=== PATIENT | female | born 1955 | race Caucasian/White ===

== ENCOUNTER → 2016-06-14 | Outpatient (CLI) | payer OTHER ==
[~2016-06-14] MED LIST: NKHM; NORCO 325 MG-51 TAB PO; PERCOCET 325 MG1 TA7 PO; PRILOSEC20 MG PO
== END | disposition home or self-care (01) ==
LOC: ORTHO 02:02
DX: M17.11 Unilateral primary osteoarthritis, right knee (principal)

== ENCOUNTER → 2016-07-13 | Outpatient (CLI) | payer BC | END | disposition home or self-care (01) | LOC: MRI 07:42 | DX: S83.231D Complex tear of medial meniscus, current injury, right knee, subsequent encounter (principal); X58.XXXD Exposure to other specified factors, subsequent encounter ==

== ENCOUNTER → 2016-08-17 | Outpatient (CLI) | payer OTHER ==
[2016-08-17 09:26] LABS: BASO % 0.9 % (0.0-1.0); EOS # 0.1 10*3/uL (0.0-0.4); EOS % 1.9 % (1.0-4.0); HEMATOCRIT 43.5 % (37.0-47.0); HEMOGLOBIN 14.6 g/dl (12.0-16.0); LYMPH # 1.3 10*3/uL (1.3-4.4); LYMPH % 29.4 % (27.0-41.0); MEAN CELL VOLUME 86.1 fl (81.0-99.0); MEAN CORPUSCULAR HGB 28.9 pg (27.0-31.0); MEAN CORPUSCULAR HGB CONC 33.6 g/dl (33.0-37.0); MEAN PLATELET VOLUME 10.3 fl (9.6-12.3); MONO # 0.3 10*3/uL (0.1-1.0); MONO % 6.3 % (3.0-9.0); NEUT # 2.6 10*3/uL (2.3-7.9); NEUT % 61.3 % (47.0-73.0); PLATELET COUNT AUTOMATED 251 10*3/uL (130-400); RED BLOOD COUNT 5.05 10*6/uL (4.10-5.10); RED CELL DISTRI WIDTH 12.4 % (0-14.5); WHITE BLOOD COUNT 4.3 10*3/uL (4.8-10.8)
[2016-08-17 09:28] LABS: BILIRUBIN NEGATIVE (NEGATIVE); BLOOD TRACE-INTACT (NEGATIVE); CLARITY SL CLOUDY (CLEAR); COLOR YELLOW (YELLOW); GLUCOSE NEGATIVE (NEGATIVE); KETONE NEGATIVE (NEGATIVE); LEUKO ESTERASE 2+ (NEGATIVE); NITRITE NEGATIVE (NEGATIVE); PH 5.5 (5.0-9.0); PROTEIN NEGATIVE (NEGATIVE); SPECIFIC GRAVITY 1.025 (1.005-1.030); UROBILINOGEN 0.2 E.U./dl (0.2-1.0)
[2016-08-17 09:44] LABS: BUN 16 mg/dl (7-24); CARBON DIOXIDE 31 mmol/L (21-32); CHLORIDE 105 mmol/L (98-107); EST GLOM FILT AFRICAN AMERICAN > 60 ml/min; GLUCOSE 91 mg/dL (65-99); POTASSIUM 4.3 mmol/L (3.5-5.1); SODIUM 144 mmol/L (136-145)
[2016-08-17 11:07] LABS: BACTERIA 2+; CALCIUM OXALATE CRYSTALS TRACE; MUCOUS 1+; WBC 21-30 wbc/hpf (0-5)
== END | disposition home or self-care (01) ==
LOC: LAB 08:06
PROVIDERS: Orthopaedic Surgery
DX: Z01.818 Encounter for other preprocedural examination (principal); S83.241A Other tear of medial meniscus, current injury, right knee, initial encounter; M22.41 Chondromalacia patellae, right knee; X58.XXXA Exposure to other specified factors, initial encounter; Y93.89 Activity, other specified; Y92.89 Other specified places as the place of occurrence of the external cause; Y99.8 Other external cause status

== ENCOUNTER → 2016-08-28 | Day surgery (SDC) | payer OTHER ==
[2016-08-28] VITALS (7 sets, daily range): BP systolic 117–137; BP diastolic 54–78
[~2016-08-28] VITALS: Ht 154.9 cm; Wt 68.9 kg
[~2016-08-28] MED LIST changes: +PERCOCET 325 MG1 TA6 PO; +ZOFRAN4 MG PO
--- NOTE | ~2016-08-28 | O ---
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 Lateral plica. Loose body. OPERATION: Right knee arthroscopy w/debridement of the medial and lateral meniscus. Chondroplasty of the medial condyle and the patella. Excision of plica. Removal of loose body. Estimated Blood Loss:5 ml Specimens:none Technical Note: Drains:none Packing:none Assistnats: Najma De La Paz Anesthesia: [place] WEB ANALYTICS SPECIALIST Raz 0.5% w/epi Indications: The patient is a 61 yo female w/right knee pain unrelieved w/conservative care. The MRI indicated a meniscus tear and chondromalacia. Procedure: The right knee was marked with a marking pen in the holding room. The patient was taken to the operative suite and placed on the operative table. A general anesthetic w/LMA intubation was performed. The right LE was prepped and draped in the normal orthopedic fashion. The leg was placed in the leg ta. The time out was performed. The areas about the medial and lateral parapatellar portals was injected w/ Marcaine 0.5% w/epi. The lateral portal was created w/a #11 blade. The blunt trochar and cannula were placed in the portal. The trochar was removed, the cannula remained and the camera was placed through the cannula. The inflow and out flow were established through the cannula. The medial portal was established using a spial needle followed by a #11 blade and blunt trochar. The knee was evaluated in a standard fashion. The medial compartment was noted to have a medial meniscus tear loose bodies chondromalacia. The meniscus was debrided w/handheld instrumentation and a full radius resector. The edges were smoothe w/the arthrocare wand. The articular surface was debrided w/full radius resector and a emeka ball rasp. The loose bodies were removed with a full radius resector. The notch was evaluated and the ACL was intact to probing and an anterior drawer test. The lateral compartment was evaluated and noted to have tear at the lateral meniscus which was debrided w/the full radius resector. The articular surface had no full thickness changes. It was gently debrided with a rasp. The patella femoral joint was evaluated and noted to have grade 3 chondromalacia which was debrided w/ a full radius resector and emeka ball rasp. There was a large thick plica which was removed w/handheld instrumentation. The instrumentation was switched. The artroscopy was placed medially and the instrumentation laterally. All compartments were again evaluated and further debridement was completed at the medial meniscus and medial femoral condyle and the patella femoral joint. When no further repairable or debridable tissue was present, the [place], [place] OPERATIVE NOTE NAME: EDGARDO LIZARRAGA UNIT #: [id number] ROOM: DOCTOR: XIMENA FAM DO BIRTHDATE: [birth year] knee was copiously irrigated w/the remaining normal saline w/ epinephrine. The instrumentation was removed. The knee was expressed of any excess fluid. The portals were closed w/ 3-0 nylon. The dressing was complete w/ 4x4 pads, cast padding and melina bandage. The anesthetic was reversed. The patient was extubated and taken to the recovery room in satisfactory condition. Sponge and needle count correct. XIMENA FAM DO CM:OPRECORD:OPERATIVE NOTE [id number] XIMENA FAM DO 09/13/16 1029 STEWART [email or web address].EM
[2016-08-28 06:50] LABS: BILIRUBIN NEGATIVE (NEGATIVE); BLOOD NEGATIVE (NEGATIVE); CLARITY CLOUDY (CLEAR); COLOR YELLOW (YELLOW); GLUCOSE NEGATIVE (NEGATIVE); KETONE NEGATIVE (NEGATIVE); LEUKO ESTERASE TRACE (NEGATIVE); NITRITE NEGATIVE (NEGATIVE); PH 5.5 (5.0-9.0); PROTEIN NEGATIVE (NEGATIVE); SPECIFIC GRAVITY 1.025 (1.005-1.030); UROBILINOGEN 0.2 E.U./dl (0.2-1.0)
[2016-08-28 06:58] LABS: BACTERIA 1+; EPITHELIAL CELLS 20-30; URINE REFLEX COMMENT YES (NO)
== END | disposition home or self-care (01) ==
LOC: SDC 08-17 08:00
PROVIDERS: Orthopaedic Surgery
DX: S83.241A Other tear of medial meniscus, current injury, right knee, initial encounter (principal); S83.281A Other tear of lateral meniscus, current injury, right knee, initial encounter; M22.41 Chondromalacia patellae, right knee; M17.11 Unilateral primary osteoarthritis, right knee; G89.29 Other chronic pain; K21.9 Gastro-esophageal reflux disease without esophagitis; Z98.890 Other specified postprocedural states; Z79.899 Other long term (current) drug therapy; Z88.2 Allergy status to sulfonamides; Z88.1 Allergy status to other antibiotic agents; X58.XXXA Exposure to other specified factors, initial encounter; Y93.89 Activity, other specified; Y92.89 Other specified places as the place of occurrence of the external cause; Y99.8 Other external cause status

== ENCOUNTER → 2017-07-12 | Outpatient (CLI) | payer OTHER | END | disposition home or self-care (01) | LOC: ORTHO 02:33 | DX: M17.0 Bilateral primary osteoarthritis of knee (principal) ==

== ENCOUNTER → 2018-11-14 | Outpatient (CLI) | payer OTHER ==
[2018-11-14 09:53] LABS: BILIRUBIN NEGATIVE (NEGATIVE); BLOOD TRACE-INTACT (NEGATIVE); CLARITY CLOUDY (CLEAR); COLOR YELLOW (YELLOW); GLUCOSE NEGATIVE (NEGATIVE); KETONE NEGATIVE (NEGATIVE); LEUKO ESTERASE 2+ (NEGATIVE); NITRITE NEGATIVE (NEGATIVE); UROBILINOGEN 0.2 E.U./dl (0.2-1.0)
[2018-11-14 11:38] LABS: BACTERIA 3+; WBC TNTC wbc/hpf (0-5)
== END | disposition home or self-care (01) ==
LOC: LAB 07:29
PROVIDERS: Internal Medicine
DX: R30.0 Dysuria (principal)

== ENCOUNTER → 2018-11-24 | Outpatient (CLI) | payer OTHER ==
[2018-11-24 08:36] LABS: EOS # 0.1 10*3/uL (0.0-0.4); EOS % 3.2 % (1.0-4.0); HEMATOCRIT 41.5 % (37.0-47.0); HEMOGLOBIN 13.9 g/dl (12.0-16.0); LYMPH # 1.4 10*3/uL (1.3-4.4); LYMPH % 34.3 % (27.0-41.0); MEAN CELL VOLUME 87.2 fl (81.0-99.0); MEAN CORPUSCULAR HGB 29.2 pg (27.0-31.0); MEAN CORPUSCULAR HGB CONC 33.5 g/dl (33.0-37.0); MEAN PLATELET VOLUME 10.4 fl (9.6-12.3); MONO # 0.4 10*3/uL (0.1-1.0); NEUT # 2.1 10*3/uL (2.3-7.9); NEUT % 52.3 % (47.0-73.0); PLATELET COUNT AUTOMATED 251 10*3/uL (130-400); RED BLOOD COUNT 4.76 10*6/uL (4.10-5.10); RED CELL DISTRI WIDTH 12.6 % (0-14.5)
[2018-11-24 09:02] LABS: ALKALINE PHOSPHATASE 82 U/L (45-117); BUN 19 mg/dl (7-24); CHLORIDE 109 mmol/L (98-107); CHOLESTEROL 163 mg/dL (<200); CREATININE 0.93 mg/dL (0.55-1.02); FREE T4 1.19 ng/dl (0.76-1.46); HDL CHOLESTEROL 48 mg/dl (40-60); LDL CHOLESTEROL 84 mg/dL (9-159); POTASSIUM 3.6 mmol/L (3.5-5.1); SGOT/AST 18 IU/L (3-35); SGPT/ALT 32 U/L (12-78); SODIUM 143 mmol/L (136-145); TOTAL PROTEIN 7.3 gm/dL (6.4-8.2); TRIGLYCERIDES 157 mg/dl (<150); VLDL CHOLESTEROL 31 mg/dL (6-40)
[2018-11-24 09:07] LABS: THYROID STIM HORMONE (HS) 0.753 uIU/ml (0.358-4.75)
[2018-11-24 09:43] LABS: VITAMIN D, 25-HYDROXY 29.2 ng/mL (30-100)
== END | disposition home or self-care (01) ==
LOC: LAB 07:40
PROVIDERS: Internal Medicine
DX: Z13.1 Encounter for screening for diabetes mellitus (principal); Z13.21 Encounter for screening for nutritional disorder; Z13.220 Encounter for screening for lipoid disorders

== ENCOUNTER → 2018-12-13 | Outpatient (CLI) | payer OTHER | END | disposition home or self-care (01) | LOC: CT 07:45 | DX: N20.0 Calculus of kidney (principal); M54.5 Low back pain; R10.9 Unspecified abdominal pain ==

== ENCOUNTER → 2018-12-31 | Outpatient (CLI) | payer OTHER | END | disposition home or self-care (01) | LOC: RAD 07:41 | DX: N95.9 Unspecified menopausal and perimenopausal disorder (principal); Z13.820 Encounter for screening for osteoporosis ==

== ENCOUNTER 2019-01-13 01:44 | Emergency (ER) | payer OTHER ==
[~2019-01-13] VITALS: Ht 154.9 cm; Wt 73.9 kg
[2019-01-13 02:22] LABS: BASO # 0.1 10*3/uL (0.0-0.1); BASO % 0.5 % (0.0-1.0); EOS # 0.1 10*3/uL (0.0-0.4); EOS % 0.6 % (1.0-4.0); HEMATOCRIT 41.4 % (37.0-47.0); LYMPH # 1.5 10*3/uL (1.3-4.4); LYMPH % 15.1 % (27.0-41.0); MEAN CELL VOLUME 84.8 fl (81.0-99.0); MEAN CORPUSCULAR HGB 28.7 pg (27.0-31.0); MEAN CORPUSCULAR HGB CONC 33.8 g/dl (33.0-37.0); MEAN PLATELET VOLUME 10.2 fl (9.6-12.3); MONO # 0.5 10*3/uL (0.1-1.0); MONO % 5.5 % (3.0-9.0); NEUT # 7.6 10*3/uL (2.3-7.9); PLATELET COUNT AUTOMATED 249 10*3/uL (130-400); RED BLOOD COUNT 4.88 10*6/uL (4.10-5.10); RED CELL DISTRI WIDTH 12.4 % (0-14.5); WHITE BLOOD COUNT 9.7 10*3/uL (4.8-10.8)
[2019-01-13 02:24] LABS: BILIRUBIN NEGATIVE (NEGATIVE); BLOOD 2+ (NEGATIVE); CLARITY CLEAR (CLEAR); COLOR YELLOW (YELLOW); GLUCOSE NEGATIVE (NEGATIVE); KETONE NEGATIVE (NEGATIVE); LEUKO ESTERASE 1+ (NEGATIVE); NITRITE NEGATIVE (NEGATIVE); PH 6.5 (5.0-9.0); SPECIFIC GRAVITY 1.015 (1.005-1.030); UROBILINOGEN 0.2 E.U./dl (0.2-1.0)
[2019-01-13 02:31] LABS: BACTERIA 1+; RBC 31-40 rbc/hpf (0-2); WBC 21-30 wbc/hpf (0-5)
[2019-01-13 02:37] LABS: ALBUMIN 4.3 gm/dl (3.1-4.5); CREATININE 1.32 mg/dL (0.55-1.02); POTASSIUM 3.6 mmol/L (3.5-5.1); TOTAL PROTEIN 7.7 gm/dL (6.4-8.2)
== END 2019-01-13 04:33 | disposition short-term general hospital (02) ==
LOC: ED 01:44
PROVIDERS: Emergency Medicine
DX: N13.2 Hydronephrosis with renal and ureteral calculous obstruction (principal); R11.10 Vomiting, unspecified; K21.9 Gastro-esophageal reflux disease without esophagitis; Z88.2 Allergy status to sulfonamides; Z79.899 Other long term (current) drug therapy

== ENCOUNTER → 2019-01-20 | Outpatient (CLI) | payer OTHER | END | disposition home or self-care (01) | LOC: RAD 11:27 | DX: N20.0 Calculus of kidney (principal) ==

== ENCOUNTER → 2019-02-04 | Outpatient (CLI) | payer OTHER | END | disposition home or self-care (01) | LOC: RAD 10:58 | DX: N20.0 Calculus of kidney (principal) ==

== ENCOUNTER → 2019-02-18 | Outpatient (CLI) | payer OTHER | END | disposition home or self-care (01) | LOC: RAD 10:09 | DX: N20.0 Calculus of kidney (principal) ==

== ENCOUNTER → 2019-02-19 | Outpatient (CLI) | payer OTHER ==
[2019-02-19 11:31] LABS: BILIRUBIN NEGATIVE (NEGATIVE); BLOOD 3+ (NEGATIVE); CLARITY CLOUDY (CLEAR); COLOR YELLOW (YELLOW); GLUCOSE NEGATIVE (NEGATIVE); KETONE NEGATIVE (NEGATIVE); LEUKO ESTERASE 3+ (NEGATIVE); NITRITE POSITIVE (NEGATIVE); PH 5.5 (5.0-9.0); SPECIFIC GRAVITY >= 1.030 (1.005-1.030); UROBILINOGEN 0.2 E.U./dl (0.2-1.0)
[2019-02-19 11:40] LABS: BACTERIA 3+; RBC TNTC rbc/hpf (0-2); WBC TNTC wbc/hpf (0-5)
== END | disposition home or self-care (01) ==
LOC: LAB 11:14
PROVIDERS: Nurse Practitioner Family
DX: N39.0 Urinary tract infection, site not specified (principal)

== ENCOUNTER → 2019-02-21 | Outpatient (CLI) | payer OTHER | END | disposition home or self-care (01) | LOC: CT 03:25 | DX: N20.0 Calculus of kidney (principal); N13.39 Other hydronephrosis ==

== ENCOUNTER → 2019-03-11 | Outpatient (CLI) | payer OTHER ==
[2019-03-11 16:55] LABS: BASO % 0.5 % (0.0-1.0); EOS # 0.1 10*3/uL (0.0-0.4); EOS % 1.4 % (1.0-4.0); HEMATOCRIT 38.6 % (37.0-47.0); HEMOGLOBIN 12.7 g/dl (12.0-16.0); LYMPH # 1.7 10*3/uL (1.3-4.4); LYMPH % 22.8 % (27.0-41.0); MEAN CELL VOLUME 86.2 fl (81.0-99.0); MEAN CORPUSCULAR HGB 28.3 pg (27.0-31.0); MEAN CORPUSCULAR HGB CONC 32.9 g/dl (33.0-37.0); MEAN PLATELET VOLUME 9.8 fl (9.6-12.3); MONO # 0.6 10*3/uL (0.1-1.0); MONO % 8.2 % (3.0-9.0); NEUT # 4.9 10*3/uL (2.3-7.9); NEUT % 66.8 % (47.0-73.0); PLATELET COUNT AUTOMATED 261 10*3/uL (130-400); RED BLOOD COUNT 4.48 10*6/uL (4.10-5.10); RED CELL DISTRI WIDTH 12.5 % (0-14.5); WHITE BLOOD COUNT 7.3 10*3/uL (4.8-10.8)
[2019-03-11 17:17] LABS: ALBUMIN 3.8 gm/dl (3.1-4.5); ALKALINE PHOSPHATASE 79 U/L (45-117); BUN 15 mg/dl (7-24); CHLORIDE 106 mmol/L (98-107); CREATININE 1.02 mg/dL (0.55-1.02); POTASSIUM 3.4 mmol/L (3.5-5.1); SGOT/AST 14 IU/L (3-35); SGPT/ALT 22 U/L (12-78); SODIUM 140 mmol/L (136-145); TOTAL PROTEIN 7.7 gm/dL (6.4-8.2)
== END | disposition home or self-care (01) ==
LOC: LAB 16:24
PROVIDERS: Internal Medicine
DX: N39.0 Urinary tract infection, site not specified (principal)

== ENCOUNTER 2019-03-16 08:34 | Inpatient (IN) | payer OTHER ==
[~2019-03-16] VITALS: Ht 154.9 cm; Wt 75.0 kg
[2019-03-16 08:00] VITALS: BP 132/61
--- NOTE | 2019-03-16 08:52 | NUR ---
Time: 850 A 64 year old FEMALE admitted to under services of DR. ANGEL LUIS ADAMES,RUTH. Pt. arrived via bed from [place]. Chief complaint: ESBL UTI. ALEX ADKINS
[2019-03-16 10:28] LABS: BASO % 0.5 % (0.0-1.0); EOS # 0.1 10*3/uL (0.0-0.4); EOS % 1.4 % (1.0-4.0); HEMATOCRIT 36.9 % (37.0-47.0); HEMOGLOBIN 12.1 g/dl (12.0-16.0); LYMPH # 1.3 10*3/uL (1.3-4.4); LYMPH % 19.3 % (27.0-41.0); MEAN CELL VOLUME 85.6 fl (81.0-99.0); MEAN CORPUSCULAR HGB 28.1 pg (27.0-31.0); MEAN CORPUSCULAR HGB CONC 32.8 g/dl (33.0-37.0); MEAN PLATELET VOLUME 9.5 fl (9.6-12.3); MONO # 0.6 10*3/uL (0.1-1.0); MONO % 9.3 % (3.0-9.0); NEUT # 4.5 10*3/uL (2.3-7.9); NEUT % 69.2 % (47.0-73.0); PLATELET COUNT AUTOMATED 254 10*3/uL (130-400); RED BLOOD COUNT 4.31 10*6/uL (4.10-5.10); RED CELL DISTRI WIDTH 11.9 % (0-14.5); WHITE BLOOD COUNT 6.5 10*3/uL (4.8-10.8)
[2019-03-16 11:04] LABS: BUN 15 mg/dl (7-24); CHLORIDE 109 mmol/L (98-107); POTASSIUM 3.8 mmol/L (3.5-5.1); SODIUM 141 mmol/L (136-145)
[2019-03-16 11:06] LABS: CREATININE 1.08 mg/dL (0.55-1.02)
[2019-03-16 12:00] VITALS: BP 125/52
[2019-03-16] MEDS ORDERED: DOXYCYCLINE100 M3 PO (14:35)
[2019-03-16] MEDS ORDERED: POTASSIUM CHLO10 ME4 PO (14:35)
[2019-03-16 16:00] VITALS: BP 116/54
[2019-03-16 20:00] VITALS: BP 119/57
--- NOTE | 2019-03-16 20:58 | NUR ---
PATIENT RESTING QUIETLY IN BED. WATCHING TV. PATIENT HAD A BOWEL MOVEMENT TODAY. NO COMPLAINTS OF PAIN AT THIS TIME. RESPIRATIONS EASY, REGULAR, NO DISTRESS. NO COMPLAINTS OR REQUESTS AT THIS TIME. CALL LIGHT WITHIN REACH. WILL CONTINUE TO MONITOR.
[2019-03-17] VITALS: BP 114/69; BP 126/60
--- NOTE | 2019-03-17 07:51 | NUR ---
Fax[facility] UC and [facility] [employer] [facility] at [phone] regarding prior authorization for Merrem at home. Awaiting response.
[2019-03-17 08:00] VITALS: BP 119/49
--- NOTE | 2019-03-17 11:06 | NUR ---
Faxed H&P, labs, UC, and prescription for Merrem 1 GM IV q8h x 10 days to Imelda at [facility]. Awaiting response
--- NOTE | 2019-03-17 13:28 | NUR ---
Biological Plant Operator in to talk to patient. Patient states lives at home with her . There are 0 steps in the home. Physician: Dr. Concha Cooper [facility] Home health services: would like [facility] Patient's level of ADLs: INDEPENDENT Patient has working utilities: yes DME: none Follow-up physician's appointment after d/c: she prefers to make her own follow up appt after discharge Does patient want to access PORTAL?: no Discharge plan discussed with patient. She lives at home with her . She is independent in her ADLs and ambulation. Discussed home health care services and she is agreeable. When provided with a list of facilities she chose [facility]. When medically stable and auth is received for home Merrem she will be discharged to home. She states her will provide transportation on discharge. COTY MENDOZA
[2019-03-17 16:00] VITALS: BP 122/76
[2019-03-17 20:00] VITALS: BP 134/72
[2019-03-18 08:00] VITALS: BP 141/83
--- NOTE | 2019-03-18 08:31 | NUR ---
Faxed Merrem prescription and clinical to [facility] at [phone]. Awaiting response.
[2019-03-18 09:14] LABS: BUN 15 mg/dl (7-24); CHLORIDE 109 mmol/L (98-107); POTASSIUM 4.1 mmol/L (3.5-5.1); SODIUM 143 mmol/L (136-145)
[2019-03-18 09:15] LABS: CREATININE 0.96 mg/dL (0.55-1.02)
--- NOTE | 2019-03-18 10:56 | NUR ---
PT STATES SHE IS COLD DESPITE BEING COVERED UP. TEMPERATURE TAKEN ORALLY AND IS 98.5.
--- NOTE | 2019-03-18 11:47 | NUR ---
Faxed [employer] referral for Merrem. Awaiting return call.
--- NOTE | 2019-03-18 11:56 | NUR ---
Faxed referral to [facility]
[2019-03-18 12:00] VITALS: BP 151/78
--- NOTE | 2019-03-18 12:07 | NUR ---
[facility] IV antibiotic authorization. She states it can take up to 24 hours to call back later today.
[2019-03-18 16:00] VITALS: BP 97/70
--- NOTE | 2019-03-18 16:01 | NUR ---
Received call from Hailey at [employer]. They are still waiting for eligibility. Spoke to Tawnya from [facility]. They are going to put her on Saturday's IV schedule. Patient will have an 80/20. Informed patient and she verbalized an understanding.
--- NOTE | 2019-03-18 16:30 | NUR ---
Discussed with patient [employer] still waiting for eligibility from her insurance. She verbalized an understanding and states she does feel better.
[2019-03-18 20:00] VITALS: BP 119/55
--- NOTE | 2019-03-18 23:18 | NUR ---
PATIENT ASKING FOR MORE BLANKETS, ORAL TEMP 98. BLANKETS PROVIDED. ALL SAFETY MEASURES IN PLACE.
[2019-03-19] VITALS: BP 123/63
[2019-03-19 08:00] VITALS: BP 127/62
--- NOTE | 2019-03-19 08:00 | NUR ---
PATIENT SITTING UP IN BED. NO DISTRESS NOTED. RESPIRATIONS EASY, REGULAR ON RA. DENIES ANY SOB. DENIES ANY PAIN/DISCOMFORT AT THIS TIME. VSS. WILL CONTINUE TO MONITOR. VSS. CALL LIGHT WITHIN REACH.
--- NOTE | 2019-03-19 09:15 | NUR ---
Tibco Developer in to see patient along with Tiffanie from [employer] to discuss home IVs. REPLACED BY [facility] will provide home health care services. When medically stable she will be discharged to home. Her is at the bedside.
--- NOTE | 2019-03-19 11:54 | NUR ---
Spoke to Tawnya at [facility] regarding patient discharging to home today. She will receive her last inpatient dose today at 3pm and will be discharged to home. Start of care for [facility] and [facility] will be tomorrow, Saturday.
[2019-03-19 12:00] VITALS: BP 121/63
--- NOTE | 2019-03-19 12:32 | NUR ---
Spoke to Jenni from [facility] regarding prior authorization for IV Merrem at home. Awaiting fax to complete.
--- NOTE | 2019-03-19 14:39 | NUR ---
Discharge instructions reviewed with patient/family. Patient receptive and verbalizes understanding. Follow-up care arranged. Written instructions given to patient/family. IDALMIS SHAVER.
== END 2019-03-19 14:45 | disposition home or self-care (01) | DRG 690 ==
LOC: 5E 08:34
PROVIDERS: ADMIT Internal Medicine
DX: N13.6 Pyonephrosis (principal); Z16.12 Extended spectrum beta lactamase (ESBL) resistance; B96.20 Unspecified Escherichia coli [E. coli] as the cause of diseases classified elsewhere; E87.6 Hypokalemia; N17.0 Acute kidney failure with tubular necrosis; Z87.11 Personal history of peptic ulcer disease

== ENCOUNTER → 2019-04-14 | Outpatient (CLI) | payer OTHER ==
[~2019-04-14] MED LIST changes: +DOXYCYCLINE100 M3 PO; +POTASSIUM CHLO10 ME4 PO
[2019-04-14 14:58] LABS: BUN 15 mg/dl (7-24); CHLORIDE 106 mmol/L (98-107); CREATININE 1.04 mg/dL (0.55-1.02); POTASSIUM 3.4 mmol/L (3.5-5.1); SODIUM 141 mmol/L (136-145)
== END | disposition home or self-care (01) ==
LOC: LAB 13:57
PROVIDERS: Internal Medicine
DX: N18.9 Chronic kidney disease, unspecified (principal)

== ENCOUNTER → 2019-04-16 | Outpatient (CLI) | payer OTHER ==
[2019-04-16 12:42] LABS: BILIRUBIN NEGATIVE (NEGATIVE); CLARITY CLOUDY (CLEAR); COLOR YELLOW (YELLOW); GLUCOSE NEGATIVE (NEGATIVE); KETONE NEGATIVE (NEGATIVE)
[2019-04-16 12:43] LABS: BLOOD 2+ (NEGATIVE); LEUKO ESTERASE 3+ (NEGATIVE); NITRITE NEGATIVE (NEGATIVE); UROBILINOGEN 0.2 E.U./dl (0.2-1.0)
[2019-04-16 13:11] LABS: BACTERIA 4+; WBC TNTC wbc/hpf (0-5)
== END | disposition home or self-care (01) ==
LOC: LAB 12:07
PROVIDERS: Urology
DX: N39.0 Urinary tract infection, site not specified (principal)

== ENCOUNTER 2019-04-18 12:00 | Inpatient (IN) | payer OTHER ==
[~2019-04-18] VITALS: Ht 154.9 cm; Wt 70.4 kg
[2019-04-18 12:08] VITALS: BP 126/59
[2019-04-18 12:43] LABS: BILIRUBIN NEGATIVE (NEGATIVE); CLARITY SL CLOUDY (CLEAR); COLOR YELLOW (YELLOW); GLUCOSE NEGATIVE (NEGATIVE); KETONE NEGATIVE (NEGATIVE)
[2019-04-18 12:44] LABS: BLOOD 3+ (NEGATIVE); LEUKO ESTERASE 3+ (NEGATIVE); NITRITE POSITIVE (NEGATIVE); PH 6.5 (5.0-9.0); UROBILINOGEN 0.2 E.U./dl (0.2-1.0)
[2019-04-18 12:50] LABS: BACTERIA 2+; WBC TNTC wbc/hpf (0-5)
[2019-04-18 13:31] LABS: BASO % 0.3 % (0.0-1.0); HEMATOCRIT 34.5 % (37.0-47.0); HEMOGLOBIN 11.4 g/dl (12.0-16.0); LYMPH # 0.9 10*3/uL (1.3-4.4); LYMPH % 8.2 % (27.0-41.0); MEAN CELL VOLUME 82.3 fl (81.0-99.0); MEAN CORPUSCULAR HGB 27.2 pg (27.0-31.0); MEAN PLATELET VOLUME 10.1 fl (9.6-12.3); MONO # 0.7 10*3/uL (0.1-1.0); MONO % 6.9 % (3.0-9.0); NEUT # 8.9 10*3/uL (2.3-7.9); NEUT % 83.9 % (47.0-73.0); PLATELET COUNT AUTOMATED 182 10*3/uL (130-400); RED BLOOD COUNT 4.19 10*6/uL (4.10-5.10); RED CELL DISTRI WIDTH 12.7 % (0-14.5); WHITE BLOOD COUNT 10.6 10*3/uL (4.8-10.8)
[2019-04-18 13:47] LABS: ALBUMIN 2.9 gm/dl (3.1-4.5); CREATININE 1.25 mg/dL (0.55-1.02); POTASSIUM 3.6 mmol/L (3.5-5.1); TOTAL PROTEIN 7.1 gm/dL (6.4-8.2)
[2019-04-18 15:24] VITALS: BP 122/54
[2019-04-18 16:00] VITALS: BP 115/66
--- NOTE | 2019-04-18 16:40 | NUR ---
DR. WADE NOTIFIED OF CONSULT, DR. BECKWITH'S ANSWERING SERVICE NOTIFIED OF CONSULT.
--- NOTE | 2019-04-18 18:24 | NUR ---
TYLENOL GIVEN FOR C/O HEADACHE. WILL MONITOR.
[2019-04-18 20:00] VITALS: BP 112/53
[2019-04-19] VITALS: BP 110/55
[2019-04-19 06:33] LABS: BASO % 0.3 % (0.0-1.0); EOS # 0.1 10*3/uL (0.0-0.4); EOS % 0.7 % (1.0-4.0); HEMOGLOBIN 11.6 g/dl (12.0-16.0); LYMPH # 0.7 10*3/uL (1.3-4.4); LYMPH % 7.8 % (27.0-41.0); MEAN CELL VOLUME 85.3 fl (81.0-99.0); MEAN CORPUSCULAR HGB 26.7 pg (27.0-31.0); MEAN CORPUSCULAR HGB CONC 31.4 g/dl (33.0-37.0); MEAN PLATELET VOLUME 10.5 fl (9.6-12.3); MONO # 0.8 10*3/uL (0.1-1.0); MONO % 8.6 % (3.0-9.0); NEUT # 7.2 10*3/uL (2.3-7.9); NEUT % 82.4 % (47.0-73.0); PLATELET COUNT AUTOMATED 169 10*3/uL (130-400); RED BLOOD COUNT 4.34 10*6/uL (4.10-5.10); RED CELL DISTRI WIDTH 12.8 % (0-14.5); WHITE BLOOD COUNT 8.7 10*3/uL (4.8-10.8)
[2019-04-19 06:50] LABS: CREATININE 1.2 mg/dL (0.55-1.02); POTASSIUM 3.8 mmol/L (3.5-5.1)
--- NOTE | 2019-04-19 07:00 | NUR ---
24 HR chart check completed.
[2019-04-19 08:00] VITALS: BP 132/60
--- NOTE | 2019-04-19 08:15 | NUR ---
RESTING IN BED WITH NO DISTRESS NOTED. RESPIRATIONS EASY. LUNGS DIMINISHED, CLEAR. PULSE OX 95% RA. DRY NON-PROD COUGH. DENIES DYSURIA. IV FLUIDS INFUSING PER ORDER. CALL LIGHT WITHIN REACH. NO VOICED COMPLAINTS
--- NOTE | 2019-04-19 09:30 | NUR ---
MEDICATED WITH TYLENOL PER PRN ORDER PROPHYLACTICALLY FOR TEMP.
--- NOTE | 2019-04-19 10:40 | NUR ---
DR BAHENA CALLED IN. LABS AND MEDS REVIEWED. NEW ORDERS RECEIVED. WILL SEE PATIENT TODAY
[2019-04-19 12:00] VITALS: BP 122/69
--- NOTE | 2019-04-19 12:00 | NUR ---
RESTING IN BED. NO ACUTE DISTRESS NOTED. IV FLUIDS MAINTAINED. CALL LIGHT WITHIN REACH. NO VOICED COMPLAINTS
--- NOTE | 2019-04-19 14:35 | NUR ---
MEDICATED WITH TYLENOL PER PRN ORDER PROPHYLACTICALLY FOR TEMP
[2019-04-19 16:00] VITALS: BP 126/60
--- NOTE | 2019-04-19 16:00 | NUR ---
VISITING WITH . NO DISTRESS NOTED. NO VOICED COMPLAINTS
--- NOTE | 2019-04-19 18:20 | NUR ---
DR WADE HERE TO SEE PATIENT AND DISCUSS PLAN OF CARE
[2019-04-19 20:00] VITALS: BP 128/59
--- NOTE | 2019-04-19 20:43 | NUR ---
PO TYLENOL ADMINISTERED FOR C/O HEADACHE. WILL MONITOR EFFECTIVENESS. DENIES ANY OTHER NEEDS AT PRESENT TIME. CALL LIGHT IN REACH.
--- NOTE | 2019-04-19 21:49 | NUR ---
EARLIER MEDICATION EFFECTIVE PER PT. WILL MONITOR. CALL LIGHT IN REACH.
[2019-04-20] VITALS: BP 121/66
--- NOTE | 2019-04-20 04:23 | NUR ---
IV ZOFRAN ADMINSITERED PER ORDER FOR C/O NAUSEA WITHOUT EMESIS. WILL MONITOR EFFECTIVENESS. CALLL LIGHT IN REACH.
--- NOTE | 2019-04-20 06:20 | NUR ---
HERE TO SEE PT
--- NOTE | 2019-04-20 06:48 | NUR ---
HERE AT NURSES STATION. DISCUSSED PLAN OF CARE. PT TO BE TRANSFERRED TO [place] ON Saturday04/21/2019 VIA AMBULANCE FOR STENT REMOVAL WITH . STATES SHE WILL TALK TO ARON TO SET UP TRANSFER. DISCHARGE ORDER PUT IN AT THIS TIME FOR SATURDAY. DISCUSSED PLAN OF CARE WITH PT.
--- NOTE | 2019-04-20 07:37 | NUR ---
SPOKE TO REGARDING OPTICAL ENGINEERING TECHNICIAN PT STATES SHE WAS SUPPOSED TO D/C IT. PER , OKAY TO DISCONTINUE OPTICAL ENGINEERING TECHNICIAN & MAKE PT MED SURG.
[2019-04-20 08:00] VITALS: BP 125/63
--- NOTE | 2019-04-20 09:00 | NUR ---
Ceramic Tile Installation Helper in to talk to patient. Patient states lives at home with her . There are 0 steps in the home. Physician: Dr. Concha Cooper [facility] Home health services: none Patient's level of ADLs: INDEPENDENT Patient has working utilities: yes DME: none Follow-up physician's appointment after d/c: she prefers to make her own follow up appt after discharge Does patient want to access PORTAL?: no Discharge plan discussed with patient. She lives at home with her . She is independent in her ADLs and ambulation. Current plan is to transfer patient in the AM to [facility] for urology. COTY MENDOZA
[2019-04-20 12:00] VITALS: BP 124/60
--- NOTE | 2019-04-20 12:35 | NUR ---
Nutritonal Support Services Note: Albumin low at 2.9, appetite is good for meals. She receives a regular diet as ordered. Ht.5' Wt.155#. IBW 100#. She is eating 100% of meals. No Nutrition intervention needed at this time. Will follow if needed. Amee Benjamin Rdn Ld
[2019-04-20 16:00] VITALS: BP 111/43
[2019-04-20 20:00] VITALS: BP 109/60
[2019-04-21] VITALS: BP 119/52
--- NOTE | 2019-04-21 08:36 | NUR ---
DR HEIN NOTIFIED OF +BC RESULTS, CALLED TO THIS NURSE FROM LAB.
--- NOTE | 2019-04-21 08:37 | NUR ---
Discharge instructions reviewed with patient/family. Patient receptive and verbalizes understanding. Follow-up care arranged. Written instructions given to patient/family. FRANCIE MCKEON
== END 2019-04-21 08:37 | disposition short-term general hospital (02) | DRG 872 ==
LOC: ED 12:00 → EDHOLD 14:42 → 4E 14:42
PROVIDERS: Physician Assistant; ADMIT Internal Medicine
DX: A41.51 Sepsis due to Escherichia coli [E. coli] (principal); N17.9 Acute kidney failure, unspecified; Z16.12 Extended spectrum beta lactamase (ESBL) resistance; N20.2 Calculus of kidney with calculus of ureter; N30.01 Acute cystitis with hematuria; N13.6 Pyonephrosis; R91.1 Solitary pulmonary nodule; E87.6 Hypokalemia; K21.9 Gastro-esophageal reflux disease without esophagitis; Z96.0 Presence of urogenital implants; D18.09 Hemangioma of other sites; Z88.2 Allergy status to sulfonamides; Z79.899 Other long term (current) drug therapy

== ENCOUNTER → 2019-05-15 | Outpatient (CLI) | payer OTHER ==
[2019-05-15 11:39] LABS: BASO % 0.3 % (0.0-1.0); EOS % 0.6 % (1.0-4.0); HEMATOCRIT 37.5 % (37.0-47.0); HEMOGLOBIN 11.7 g/dl (12.0-16.0); LYMPH % 15.2 % (27.0-41.0); MEAN CELL VOLUME 84.3 fl (81.0-99.0); MEAN CORPUSCULAR HGB 26.3 pg (27.0-31.0); MEAN CORPUSCULAR HGB CONC 31.2 g/dl (33.0-37.0); MEAN PLATELET VOLUME 10.7 fl (9.6-12.3); MONO # 0.6 10*3/uL (0.1-1.0); MONO % 8.5 % (3.0-9.0); NEUT % 74.8 % (47.0-73.0); PLATELET COUNT AUTOMATED 236 10*3/uL (130-400); RED BLOOD COUNT 4.45 10*6/uL (4.10-5.10); RED CELL DISTRI WIDTH 14.5 % (0-14.5); WHITE BLOOD COUNT 6.7 10*3/uL (4.8-10.8)
[2019-05-15 11:46] LABS: BILIRUBIN NEGATIVE (NEGATIVE); BLOOD 3+ (NEGATIVE); CLARITY CLOUDY (CLEAR); COLOR YELLOW (YELLOW); GLUCOSE NEGATIVE (NEGATIVE); KETONE 2+ (NEGATIVE); SPECIFIC GRAVITY 1.025 (1.005-1.030)
[2019-05-15 11:47] LABS: LEUKO ESTERASE 3+ (NEGATIVE); NITRITE NEGATIVE (NEGATIVE); UROBILINOGEN 0.2 E.U./dl (0.2-1.0)
[2019-05-15 11:58] LABS: WBC TNTC wbc/hpf (0-5)
[2019-05-15 12:17] LABS: ALBUMIN 3.3 gm/dl (3.1-4.5); CREATININE 1.36 mg/dL (0.55-1.02); POTASSIUM 3.8 mmol/L (3.5-5.1); THYROXINE (T4) TOTAL 13.2 ug/dl (4.8-13.9); TOTAL PROTEIN 7.4 gm/dL (6.4-8.2)
== END | disposition home or self-care (01) ==
LOC: LAB 10:09
PROVIDERS: Nurse Practitioner Family
DX: N20.0 Calculus of kidney (principal)

== ENCOUNTER → 2019-05-28 | Outpatient (CLI) | payer OTHER | END | disposition home or self-care (01) | LOC: US 00:13 | DX: N13.30 Unspecified hydronephrosis (principal) ==

== ENCOUNTER → 2019-06-01 | Outpatient (CLI) | payer OTHER ==
[2019-06-05 18:03] LABS: BUSHITE 0.29 ratio (0.00-3.00); CALCIUM OXALATE 3.22 ratio (0.00-6.00); CALCIUM, URINE 4.7 mg/dL (Not Estab.); CALCIUM, URINE 89.3 mg/24 hr (100.0-300.0); CITRIC ACID (CITRATE) 291 mg/24 hr (320-1240); MAGNESIUM, URINE 2.6 mg/dL (Not Estab.); MONOSODIUM URATE 1.74 ratio (0.00-4.00); OSMOLALITY, URINE 261 (300-900); SODIUM, URINE 120 (39-258); SODIUM, URINE 63 mmol/L (Not Estab.); STRUVITE 0.01 ratio (0.00-1.00); URIC ACID 0.43 ratio (0.00-1.20); pH 24 HR URINE 6.4 (.)
== END | disposition home or self-care (01) ==
LOC: LAB 07:39
PROVIDERS: Urology
DX: N20.0 Calculus of kidney (principal)

== ENCOUNTER → 2019-07-15 | Outpatient (CLI) | payer OTHER ==
[2019-07-15 07:30] LABS: BASO % 0.6 % (0.0-1.0); EOS # 0.1 10*3/uL (0.0-0.4); EOS % 2.4 % (1.0-4.0); HEMATOCRIT 40.4 % (37.0-47.0); LYMPH # 1.5 10*3/uL (1.3-4.4); LYMPH % 29.3 % (27.0-41.0); MEAN CELL VOLUME 83.5 fl (81.0-99.0); MEAN CORPUSCULAR HGB 26.9 pg (27.0-31.0); MEAN CORPUSCULAR HGB CONC 32.2 g/dl (33.0-37.0); MEAN PLATELET VOLUME 9.5 fl (9.6-12.3); MONO # 0.3 10*3/uL (0.1-1.0); MONO % 6.6 % (3.0-9.0); NEUT % 60.9 % (47.0-73.0); PLATELET COUNT AUTOMATED 283 10*3/uL (130-400); RED BLOOD COUNT 4.84 10*6/uL (4.10-5.10); RED CELL DISTRI WIDTH 14.2 % (0-14.5)
[2019-07-15 07:45] LABS: ALBUMIN 3.6 gm/dl (3.1-4.5); CREATININE 1.15 mg/dL (0.55-1.02); POTASSIUM 3.9 mmol/L (3.5-5.1); TOTAL PROTEIN 7.6 gm/dL (6.4-8.2)
== END | disposition home or self-care (01) ==
LOC: LAB 07:12 → CT 08:00
PROVIDERS: Nurse Practitioner Family
DX: N13.2 Hydronephrosis with renal and ureteral calculous obstruction (principal); K76.89 Other specified diseases of liver; K80.80 Other cholelithiasis without obstruction; I10 Essential (primary) hypertension

== ENCOUNTER → 2019-07-21 | Outpatient (CLI) | payer OTHER ==
[2019-07-21 08:03] LABS: BASO % 0.6 % (0.0-1.0); EOS # 0.1 10*3/uL (0.0-0.4); EOS % 2.7 % (1.0-4.0); HEMATOCRIT 40.6 % (37.0-47.0); LYMPH # 1.5 10*3/uL (1.3-4.4); LYMPH % 32.4 % (27.0-41.0); MEAN CELL VOLUME 84.1 fl (81.0-99.0); MEAN CORPUSCULAR HGB 26.7 pg (27.0-31.0); MEAN CORPUSCULAR HGB CONC 31.8 g/dl (33.0-37.0); MONO # 0.3 10*3/uL (0.1-1.0); MONO % 5.5 % (3.0-9.0); NEUT # 2.8 10*3/uL (2.3-7.9); NEUT % 58.6 % (47.0-73.0); PLATELET COUNT AUTOMATED 309 10*3/uL (130-400); RED BLOOD COUNT 4.83 10*6/uL (4.10-5.10); WHITE BLOOD COUNT 4.8 10*3/uL (4.8-10.8)
== END | disposition home or self-care (01) ==
LOC: LAB 00:26
PROVIDERS: Internal Medicine
DX: R50.9 Fever, unspecified (principal)

== ENCOUNTER → 2019-08-18 | Outpatient (CLI) | payer OTHER | END | disposition home or self-care (01) | LOC: CT 00:37 | DX: N20.0 Calculus of kidney (principal); R73.03 Prediabetes; K57.30 Diverticulosis of large intestine without perforation or abscess without bleeding; K76.89 Other specified diseases of liver; Z96.0 Presence of urogenital implants ==

== ENCOUNTER → 2019-09-11 | Outpatient (CLI) | payer OTHER ==
[2019-09-11 08:08] LABS: HEMATOCRIT 41.8 % (37.0-47.0); MEAN CELL VOLUME 83.4 fl (81.0-99.0); MEAN CORPUSCULAR HGB 26.3 pg (27.0-31.0); MEAN CORPUSCULAR HGB CONC 31.6 g/dl (33.0-37.0); MEAN PLATELET VOLUME 11.5 fl (9.6-12.3); PLATELET COUNT AUTOMATED 121 10*3/uL (130-400); RED BLOOD COUNT 5.01 10*6/uL (4.10-5.10); RED CELL DISTRI WIDTH 13.8 % (0-14.5)
[2019-09-11 08:36] LABS: ALBUMIN 3.7 gm/dl (3.1-4.5); CREATININE 1.21 mg/dL (0.55-1.02); POTASSIUM 3.5 mmol/L (3.5-5.1); TOTAL PROTEIN 7.3 gm/dL (6.4-8.2)
[2019-09-11 09:18] LABS: BASOPHILS 1 % (0-1); TOTAL CELLS COUNTED 100 #CELLS
[2019-09-11 09:19] LABS: PLATELET SUFFICIENCY LOW (NORMAL)
== END | disposition home or self-care (01) ==
LOC: LAB 03:36
PROVIDERS: Obstetrics & Gynecology Gynecologic Oncology
DX: N85.2 Hypertrophy of uterus (principal)

== ENCOUNTER → 2019-09-15 | Outpatient (CLI) | payer OTHER | END | disposition home or self-care (01) | LOC: US 01:53 | DX: R93.89 Abnormal findings on diagnostic imaging of other specified body structures (principal); N85.8 Other specified noninflammatory disorders of uterus ==

== ENCOUNTER → 2019-09-21 | Outpatient (CLI) | payer OTHER | END | disposition home or self-care (01) | LOC: MAMMO 03:12 → LAB 03:12 → MAMMO 13:30 | DX: Z13.21 Encounter for screening for nutritional disorder (principal); Z01.818 Encounter for other preprocedural examination ==

== ENCOUNTER → 2019-09-23 | Outpatient (CLI) | payer OTHER | END | disposition home or self-care (01) | LOC: COVID19 01:01 | DX: Z01.818 Encounter for other preprocedural examination (principal); Z11.59 Encounter for screening for other viral diseases ==

== ENCOUNTER 2019-12-30 10:58 | Emergency (ER) | payer OTHER ==
[~2019-12-30] VITALS: Ht 154.9 cm; Wt 72.6 kg
[2019-12-30 12:06] LABS: BILIRUBIN Negative (Negative); BLOOD 2+ (Negative); CLARITY Clear (Clear); COLOR Yellow (Yellow); GLUCOSE Negative (Negative); KETONE Negative (Negative); LEUKO ESTERASE 2+ (Negative); NITRITE Negative (Negative); SPECIFIC GRAVITY <= 1.005 (1.001-1.030); UROBILINOGEN 0.2 E.U./dl (0.0-1.0)
[2019-12-30 12:15] LABS: BACTERIA TRACE; WBC 31-40 wbc/hpf (0-5)
[2019-12-30 12:24] LABS: BASO % 0.4 % (0.0-1.0); EOS # 0.1 10*3/uL (0.0-0.4); EOS % 0.8 % (1.0-4.0); HEMATOCRIT 43.3 % (37.0-47.0); LYMPH # 1.5 10*3/uL (1.3-4.4); LYMPH % 20.5 % (27.0-41.0); MEAN CELL VOLUME 85.1 fl (81.0-99.0); MEAN CORPUSCULAR HGB 27.7 pg (27.0-31.0); MEAN CORPUSCULAR HGB CONC 32.6 g/dl (33.0-37.0); MONO # 0.5 10*3/uL (0.1-1.0); MONO % 7.1 % (3.0-9.0); NEUT % 70.9 % (47.0-73.0); PLATELET COUNT AUTOMATED 251 10*3/uL (130-400); RED BLOOD COUNT 5.09 10*6/uL (4.10-5.10); RED CELL DISTRI WIDTH 12.5 % (0-14.5); WHITE BLOOD COUNT 7.1 10*3/uL (4.8-10.8)
[2019-12-30 12:40] LABS: ALBUMIN 3.9 gm/dl (3.1-4.5); CREATININE 1.51 mg/dL (0.55-1.02); POTASSIUM 4.3 mmol/L (3.5-5.1)
== END 2019-12-30 14:33 ==
LOC: ED 10:58
PROVIDERS: Emergency Medicine
DX: N20.0 Calculus of kidney (principal); Z88.2 Allergy status to sulfonamides; Z79.899 Other long term (current) drug therapy

== ENCOUNTER → 2020-03-28 | Outpatient (CLI) | payer MEDICARE | END | disposition home or self-care (01) | LOC: CT 10:45 | PROVIDERS: ATTEND Urology | DX: N20.0 Calculus of kidney (principal); K76.89 Other specified diseases of liver; K82.8 Other specified diseases of gallbladder; Z96.0 Presence of urogenital implants; Z90.710 Acquired absence of both cervix and uterus ==

== ENCOUNTER → 2020-06-07 | Outpatient (CLI) | payer MEDICARE | END | disposition home or self-care (01) | LOC: US 15:00 | PROVIDERS: ATTEND Urology | DX: N13.30 Unspecified hydronephrosis (principal) ==

== ENCOUNTER → 2020-06-10 | Outpatient (CLI) | payer MEDICARE ==
[2020-06-10 09:02] LABS: BASO % 0.8 % (0.0-1.0); EOS # 0.1 10*3/uL (0.0-0.4); EOS % 2.6 % (1.0-4.0); HEMATOCRIT 41.3 % (37.0-47.0); LYMPH # 1.4 10*3/uL (1.3-4.4); MEAN CELL VOLUME 84.5 fl (81.0-99.0); MONO # 0.3 10*3/uL (0.1-1.0); MONO % 8.2 % (3.0-9.0); NEUT # 2.1 10*3/uL (2.3-7.9); NEUT % 53.1 % (47.0-73.0); PLATELET COUNT AUTOMATED 240 10*3/uL (130-400); RED BLOOD COUNT 4.89 10*6/uL (4.10-5.10); RED CELL DISTRI WIDTH 13.1 % (0-14.5); WHITE BLOOD COUNT 3.9 10*3/uL (4.8-10.8)
[2020-06-10 09:34] LABS: ALBUMIN 3.8 gm/dl (3.1-4.5); CREATININE 1.19 mg/dL (0.55-1.02); FREE T4 1.1 ng/dl (0.76-1.46); POTASSIUM 3.8 mmol/L (3.5-5.1); TOTAL PROTEIN 7.5 gm/dL (6.4-8.2)
[2020-06-10 09:38] LABS: THYROID STIM HORMONE (HS) 0.929 uIU/ml (0.358-4.75)
== END | disposition home or self-care (01) ==
LOC: LAB 08:39
PROVIDERS: ATTEND Internal Medicine
DX: Z13.0 Encounter for screening for diseases of the blood and blood-forming organs and certain disorders involving the immune mechanism (principal); E55.9 Vitamin D deficiency, unspecified; E87.6 Hypokalemia; I10 Essential (primary) hypertension; Z13.1 Encounter for screening for diabetes mellitus; Z13.220 Encounter for screening for lipoid disorders

== ENCOUNTER → 2020-07-01 | Outpatient (CLI) | payer MEDICARE | END | disposition home or self-care (01) | LOC: COVID19 09:49 | PROVIDERS: ATTEND Urology | DX: Z01.812 Encounter for preprocedural laboratory examination (principal); Z20.822 Contact with and (suspected) exposure to COVID-19 ==

== ENCOUNTER → 2022-11-19 | Outpatient (CLI) | payer MEDICARE ==
[2022-11-19 07:44] LABS: BASO % 0.4 % (0.0-1.0); EOS % 0.5 % (1.0-4.0); HEMATOCRIT 41.6 % (37.0-47.0); LYMPH # 2.8 10*3/uL (1.3-4.4); LYMPH % 37.1 % (27.0-41.0); MEAN CELL VOLUME 86.5 fl (81.0-99.0); MEAN CORPUSCULAR HGB 29.5 pg (27.0-31.0); MEAN CORPUSCULAR HGB CONC 34.1 g/dl (33.0-37.0); MEAN PLATELET VOLUME 9.8 fl (9.6-12.3); MONO # 0.5 10*3/uL (0.1-1.0); MONO % 6.8 % (3.0-9.0); NEUT # 4.1 10*3/uL (2.3-7.9); NEUT % 54.7 % (47.0-73.0); PLATELET COUNT AUTOMATED 243 10*3/uL (130-400); RED BLOOD COUNT 4.81 10*6/uL (4.10-5.10); RED CELL DISTRI WIDTH 12.6 % (0-14.5); WHITE BLOOD COUNT 7.5 10*3/uL (4.8-10.8)
[2022-11-19 08:31] LABS: FREE T4 1.28 ng/dl (0.89-1.76); POTASSIUM 4.1 mmol/L (3.4-5.1); TOTAL PROTEIN 6.8 gm/dL (6.0-8.0)
[2022-11-19 08:32] LABS: VITAMIN D, 25-HYDROXY 43.4 ng/mL (30-100)
== END | disposition home or self-care (01) ==
LOC: LAB 07:30
PROVIDERS: ATTEND Internal Medicine
DX: C55 Malignant neoplasm of uterus, part unspecified (principal); E87.6 Hypokalemia; N20.0 Calculus of kidney; E55.9 Vitamin D deficiency, unspecified; Z79.899 Other long term (current) drug therapy

== ENCOUNTER → 2022-12-31 | Outpatient (CLI) | payer MEDICARE | END | disposition home or self-care (01) | LOC: RAD 12-10 09:30 → MAMMO 12-10 10:00 → RAD 12-24 09:30 | PROVIDERS: ATTEND Internal Medicine | DX: Z12.31 Encounter for screening mammogram for malignant neoplasm of breast (principal); Z78.0 Asymptomatic menopausal state ==

== ENCOUNTER → 2023-11-27 | Outpatient (CLI) | payer MEDICARE ==
[2023-11-27 07:51] LABS: BASO % 1.1 % (0.0-1.0); EOS # 0.2 10*3/uL (0.0-0.4); EOS % 4.2 % (1.0-4.0); HEMATOCRIT 42.5 % (37.0-47.0); LYMPH # 1.2 10*3/uL (1.3-4.4); LYMPH % 33.7 % (27.0-41.0); MEAN CELL VOLUME 88.5 fl (81.0-99.0); MEAN CORPUSCULAR HGB 28.8 pg (27.0-31.0); MEAN CORPUSCULAR HGB CONC 32.5 g/dl (33.0-37.0); MONO # 0.4 10*3/uL (0.1-1.0); MONO % 9.8 % (3.0-9.0); NEUT # 1.8 10*3/uL (2.3-7.9); NEUT % 50.9 % (47.0-73.0); PLATELET COUNT AUTOMATED 196 10*3/uL (130-400); RED CELL DISTRI WIDTH 12.5 % (0-14.5); WHITE BLOOD COUNT 3.6 10*3/uL (4.8-10.8)
[2023-11-27 08:43] LABS: FREE T4 1.34 ng/dl (0.89-1.76); POTASSIUM 4.2 mmol/L (3.4-5.1); TOTAL PROTEIN 6.9 gm/dL (6.0-8.0)
[2023-11-27 09:05] LABS: VITAMIN D, 25-HYDROXY 44.2 ng/mL (30-100)
== END | disposition home or self-care (01) ==
LOC: LAB 07:32
PROVIDERS: ATTEND Internal Medicine
DX: N20.0 Calculus of kidney (principal); R53.83 Other fatigue; I10 Essential (primary) hypertension; E53.9 Vitamin B deficiency, unspecified; E55.9 Vitamin D deficiency, unspecified

== ENCOUNTER → 2024-01-20 | Outpatient (CLI) | payer MEDICARE | END | disposition home or self-care (01) | LOC: MAMMO 08:09 | PROVIDERS: ATTEND Internal Medicine | DX: Z12.31 Encounter for screening mammogram for malignant neoplasm of breast (principal); R92.323 Mammographic fibroglandular density, bilateral breasts ==